=== PATIENT | male | born 1945 | race Caucasian/White ===

== ENCOUNTER 2022-01-19 12:06 | Observation (INO) ==
[2022-01-19 12:32] LABS: Basophils % 0.2 %; Eosinophils % 0.1 %; Hematocrit 46.3 % (37.5-50.1); Hemoglobin 15.8 g/dL (12.9-16.9); Immature Granulocytes % 0.6 % (0-4); Lymphocytes # 0.6 K/mcL (0.6-4.6); Lymphocytes % 3.7 %; Mean Corpuscular HGB Conc 34.1 g/dL (31.6-35.5); Mean Corpuscular Hemoglobin 31.3 pg (28.0-33.3); Mean Corpuscular Volume 91.9 fL (83.0-100.0); Mean Platelet Volume 9.5 fL (9.4-12.4); Monocytes # 2.1 K/mcL (0.0-1.3); Monocytes % 13.4 %; Neutrophils # 13.1 K/mcL (1.6-8.9); Platelet Count 244 K/mcL (140-400); Red Blood Count 5.04 M/mcL (4.19-5.50); Red Cell Distribution Width 12.6 % (11.5-14.5)
[2022-01-19 12:44] LABS: INR 1.2; Prothrombin Time 13.1 Seconds (9.4-12.1)
[2022-01-19 12:47] LABS: Activated Partial Thrombo Time 29.3 Seconds (26.0-36.0)
[2022-01-19 12:52] LABS: Alanine Aminotransferase 16 Units/L (7-52); Albumin/Globulin Ratio 1.4 (1.1-2.2); Alkaline Phosphatase 65 Units/L (34-104); Aspartate Amino Transferase 18 Units/L (13-39); BUN/Creatinine Ratio 17 (6-26); Bilirubin,Total 0.9 mg/dL (0.3-1.0); Blood Urea Nitrogen 16 mg/dL (8-23); Calcium 9.8 mg/dL (8.6-10.3); Carbon Dioxide 26 mEq/L (23-29); Chloride 100 mEq/L (98-107); Globulin 2.8 g/dL (2.4-3.5); Glucose 178 mg/dL (70-105); Osmolality,Calculated 282 (280-300); Potassium 3.8 mEq/L (3.5-5.1); Sodium 133 mEq/L (136-145); Total Protein 6.8 g/dL (6.4-8.9); eGFR For African Americans > 60 (> 60); eGFR For Non-African Americans > 60 (> 60)
[2022-01-19] MEDS ORDERED: Naloxone 0.4 MG/ML INJ IVP PRN (15:42)
[2022-01-19] MEDS ORDERED: Ondansetron 4 MG/2 ML VIAL IVP PRN (15:42)
[2022-01-19] MEDS ORDERED: Melatonin 3 MG TABLET PO PRN (15:42)
[2022-01-19] MEDS ORDERED: Mag Hydrox/Al Hydrox/Simeth 30 ML UDC PO PRN (15:42)
[2022-01-19] MEDS ORDERED: Dextrose 4 GM Chewable Tablets PO PRN ×2 (15:46)
[2022-01-19] MEDS ORDERED: D5% in Water 1,000 ML IVC PRN (15:46)
[2022-01-19] MEDS ORDERED: *HR* Dextrose 50 % in Water (Syg) 50 ML SYRINGE IVP PRN (15:46)
[2022-01-19] MEDS: Insulin LISPRO 300 UNITS/3 ML VIAL SUBQ SCH (16:40)
[2022-01-19 20:54] LABS: Estimated Average Glucose 137 mg/dl; Hemoglobin A1C 6.4 %
[2022-01-19] MEDS: 0.9 % Sodium Chloride 1,000 ML IVC SCH (22:27)
[2022-01-20 07:16] LABS: Basophils % 0.1 %; Hematocrit 42.2 % (37.5-50.1); Hemoglobin 14.1 g/dL (12.9-16.9); Immature Granulocytes % 0.9 % (0-4); Lymphocytes # 0.5 K/mcL (0.6-4.6); Lymphocytes % 3.3 %; Mean Corpuscular HGB Conc 33.4 g/dL (31.6-35.5); Mean Corpuscular Hemoglobin 31.3 pg (28.0-33.3); Mean Corpuscular Volume 93.8 fL (83.0-100.0); Mean Platelet Volume 10.1 fL (9.4-12.4); Monocytes # 2.4 K/mcL (0.0-1.3); Monocytes % 14.6 %; Neutrophils # 13.3 K/mcL (1.6-8.9); Platelet Count 186 K/mcL (140-400); Red Cell Distribution Width 12.6 % (11.5-14.5); Segmented Neutrophils % 81.1 %; White Blood Count 16.4 K/mcL (4.3-11.1)
[2022-01-20 07:39] LABS: BUN/Creatinine Ratio 18 (6-26); Blood Urea Nitrogen 14 mg/dL (8-23); Calcium 8.7 mg/dL (8.6-10.3); Carbon Dioxide 22 mEq/L (23-29); Chloride 103 mEq/L (98-107); Glucose 187 mg/dL (70-105); Osmolality,Calculated 281 (280-300); Potassium 3.3 mEq/L (3.5-5.1); Sodium 133 mEq/L (136-145); eGFR For African Americans > 60 (> 60); eGFR For Non-African Americans > 60 (> 60)
[2022-01-20 08:00] VITALS: RESP 16
[2022-01-20] MEDS ORDERED: *HR* Glimepiride 2 MG TABLET PO SCH (08:00)
[2022-01-20] MEDS ORDERED: (Ubidecarenone [Co Q-10] 10 MG Capsule) PO SCH (09:00)
[2022-01-20] MEDS ORDERED: (Glucosamine Sulfate Dipot Chlr [Glucosamine] 1,000 MG) PO SCH (09:00)
[2022-01-20] MEDS ORDERED: Aspirin Enteric Coated 81 MG Tablet PO SCH (09:00)
[2022-01-20] MEDS ORDERED: Cholecalciferol (D-3) 1,000 UNIT (25MCG) TABLET PO SCH (09:00)
[2022-01-20] MEDS ORDERED: amLODIPine 5 MG TABLET PO SCH (09:00)
[2022-01-20] MEDS ORDERED: INULIN 2 GM PO SCH (09:00)
[2022-01-20] MEDS ORDERED: [UNRECOGNIZED DRUG - OTHER] PO SCH (09:00)
[2022-01-20] MEDS ORDERED: FLAX PO SCH (09:00)
[2022-01-20] MEDS ORDERED: BORAGE PO SCH (09:00)
[2022-01-20] MEDS ORDERED: Vitamin B Complex/Vit C/Vit E 1 EACH TABLET PO SCH (09:00)
[2022-01-20] MEDS ORDERED: FISH OIL PO SCH (09:00)
[2022-01-20] MEDS: Insulin LISPRO 300 UNITS/3 ML VIAL SUBQ SCH ×3 (09:30→12:46)
[2022-01-20 09:38] LABS: Bilirubin,Urine Negative (Negative); Blood,Urine Large (Negative); Clarity,Urine Clear (Clear); Color,Urine Yellow (Yellow); Glucose,Urine (UA) Normal (Normal); Ketones,Urine Negative (Negative); Leukocyte Esterase,Urine Trace (Negative); Nitrite,Urine Negative (Negative); PH,Urine 6.5 pH Units (5.0-8.0); Protein,Urine Negative (Neg-Trace); Specific Gravity,Urine <= 1.005 (1.010-1.025); Urobilinogen,Urine Normal (Normal)
[2022-01-20 09:49] LABS: Bacteria,Urine Few per hpf (None-Few); WBC,Urine 0-3 per hpf (0-3)
[2022-01-20] MEDS ORDERED: Acetaminophen 325 MG TABLET PO PRN (11:10)
[2022-01-20 11:46] VITALS: BP 123/62; PULSE 82; TEMP 99.4; O2SAT 98
[2022-01-20] MEDS: 0.9 % Sodium Chloride 1,000 ML IVC SCH (12:06)
[2022-01-20] MEDS ORDERED: 0.9 % Sodium Chloride 1,000 ML IVC SCH ×2 (13:30→14:08)
[2022-01-20] MEDS ORDERED: Piperacillin/Tazobactam 3.375 GM in 0.9 % Sodium Chloride Mini Bag 100 ML IVPB SCH (13:56)
== END 2022-01-20 15:46 | disposition short-term general hospital (02) ==
LOC: INPPIK 12:06 → EMEROOPIK 12:06 → INPPIK 16:08
PROVIDERS: ADMIT Family Medicine; ATTEND Family Medicine

== ENCOUNTER 2022-01-30 11:51 | Inpatient (IN) ==
[2022-01-30] MEDS ORDERED: *HR* Dextrose 50 % in Water (Syg) 50 ML SYRINGE IVP PRN (15:34)
[2022-01-30] MEDS ORDERED: Dextrose Gel 15 GM/37.5 ML TUBE PO PRN ×2 (15:34)
[2022-01-30] MEDS ORDERED: D5% in Water 1,000 ML IVC PRN (15:34)
[2022-01-30] MEDS: Insulin LISPRO 300 UNITS/3 ML VIAL SUBQ SCH ×2 (17:44→20:43)
[2022-01-30] MEDS: Losartan/HCTZ 50-12.5 TABLET PO SCH (20:43)
[2022-01-31 06:41] LABS: Basophils # 0.1 K/mcL (0.0-0.2); Basophils % 0.8 %; Eosinophils # 0.5 K/mcL (0.0-0.6); Eosinophils % 3.6 %; Hematocrit 44.4 % (37.5-50.1); Hemoglobin 14.6 g/dL (12.9-16.9); Immature Granulocytes % 2.3 % (0-4); Lymphocytes # 1.7 K/mcL (0.6-4.6); Lymphocytes % 11.5 %; Mean Corpuscular HGB Conc 32.9 g/dL (31.6-35.5); Mean Corpuscular Hemoglobin 30.9 pg (28.0-33.3); Mean Corpuscular Volume 94.1 fL (83.0-100.0); Mean Platelet Volume 9.7 fL (9.4-12.4); Monocytes # 1.4 K/mcL (0.0-1.3); Monocytes % 9.5 %; Neutrophils # 10.8 K/mcL (1.6-8.9); Platelet Count 416 K/mcL (140-400); Red Blood Count 4.72 M/mcL (4.19-5.50); Segmented Neutrophils % 72.3 %; White Blood Count 14.9 K/mcL (4.3-11.1)
[2022-01-31 06:59] LABS: BUN/Creatinine Ratio 25 (6-26); Blood Urea Nitrogen 21 mg/dL (8-23); Calcium 9.5 mg/dL (8.6-10.3); Carbon Dioxide 26 mEq/L (23-29); Chloride 104 mEq/L (98-107); Glucose 178 mg/dL (70-105); Osmolality,Calculated 289 (280-300); Potassium 3.9 mEq/L (3.5-5.1); Sodium 136 mEq/L (136-145); eGFR For African Americans > 60 (> 60); eGFR For Non-African Americans > 60 (> 60)
[2022-01-31] MEDS: Cholecalciferol (D-3) 1,000 UNIT (25MCG) TABLET PO SCH (08:45)
[2022-01-31] MEDS: *HR* Glimepiride 2 MG TABLET PO SCH (08:46)
[2022-01-31] MEDS: amLODIPine 5 MG TABLET PO SCH (08:46)
[2022-01-31] MEDS: [UNRECOGNIZED DRUG - OTHER] PO SCH (08:48)
[2022-01-31] MEDS: FLAX PO SCH (08:48)
[2022-01-31] MEDS: Aspirin Enteric Coated 81 MG Tablet PO SCH (08:48)
[2022-01-31] MEDS: FISH OIL PO SCH (08:48)
[2022-01-31] MEDS: Vitamin B Complex/Vit C/Vit E 1 EACH TABLET PO SCH (08:48)
[2022-01-31] MEDS: BORAGE PO SCH (08:48)
[2022-01-31] MEDS: GLUCOSAMINE SULFATE DIPOT CHLR 1000 MG PO SCH (08:49)
[2022-01-31] MEDS: INULIN 2 GM PO SCH (08:49)
[2022-01-31] MEDS: (Ubidecarenone [Co Q-10] 10 MG Capsule) PO SCH (08:49)
[2022-01-31] MEDS: Insulin LISPRO 300 UNITS/3 ML VIAL SUBQ SCH ×4 (08:49→21:12)
[2022-01-31] MEDS: *HR* Heparin 5,000 UNIT/ML VIAL SQ SCH (18:10)
[2022-01-31] MEDS: Losartan/HCTZ 50-12.5 TABLET PO SCH (21:12)
[2022-02-01] MEDS: *HR* Heparin 5,000 UNIT/ML VIAL SQ SCH ×2 (06:42→18:12)
[2022-02-01 09:20] LABS: Basophils # 0.1 K/mcL (0.0-0.2); Eosinophils # 0.6 K/mcL (0.0-0.6); Eosinophils % 4.9 %; Hematocrit 45.8 % (37.5-50.1); Hemoglobin 14.9 g/dL (12.9-16.9); Immature Granulocytes % 1.8 % (0-4); Lymphocytes # 1.9 K/mcL (0.6-4.6); Lymphocytes % 15.5 %; Mean Corpuscular HGB Conc 32.5 g/dL (31.6-35.5); Mean Corpuscular Hemoglobin 30.9 pg (28.0-33.3); Mean Platelet Volume 9.5 fL (9.4-12.4); Monocytes # 1.2 K/mcL (0.0-1.3); Monocytes % 9.5 %; Platelet Count 449 K/mcL (140-400); Red Blood Count 4.82 M/mcL (4.19-5.50); Red Cell Distribution Width 12.9 % (11.5-14.5); Segmented Neutrophils % 67.3 %; White Blood Count 12.4 K/mcL (4.3-11.1)
[2022-02-01 09:37] LABS: Neutrophils # 8.4 K/mcL (1.6-8.9)
[2022-02-01 09:47] LABS: BUN/Creatinine Ratio 21 (6-26); Blood Urea Nitrogen 18 mg/dL (8-23); Calcium 9.6 mg/dL (8.6-10.3); Carbon Dioxide 25 mEq/L (23-29); Chloride 102 mEq/L (98-107); Glucose 247 mg/dL (70-105); Osmolality,Calculated 288 (280-300); Potassium 4.5 mEq/L (3.5-5.1); Sodium 134 mEq/L (136-145); eGFR For African Americans > 60 (> 60); eGFR For Non-African Americans > 60 (> 60)
[2022-02-01] MEDS: amLODIPine 5 MG TABLET PO SCH (10:06)
[2022-02-01] MEDS: *HR* Glimepiride 2 MG TABLET PO SCH (10:06)
[2022-02-01] MEDS: Aspirin Enteric Coated 81 MG Tablet PO SCH (10:06)
[2022-02-01] MEDS: [UNRECOGNIZED DRUG - OTHER] PO SCH (10:07)
[2022-02-01] MEDS: (Ubidecarenone [Co Q-10] 10 MG Capsule) PO SCH (10:07)
[2022-02-01] MEDS: FISH OIL PO SCH (10:07)
[2022-02-01] MEDS: Cholecalciferol (D-3) 1,000 UNIT (25MCG) TABLET PO SCH (10:07)
[2022-02-01] MEDS: GLUCOSAMINE SULFATE DIPOT CHLR 1000 MG PO SCH (10:07)
[2022-02-01] MEDS: BORAGE PO SCH (10:07)
[2022-02-01] MEDS: FLAX PO SCH (10:07)
[2022-02-01] MEDS: INULIN 2 GM PO SCH (10:07)
[2022-02-01] MEDS: Vitamin B Complex/Vit C/Vit E 1 EACH TABLET PO SCH (10:07)
[2022-02-01] MEDS: Insulin LISPRO 300 UNITS/3 ML VIAL SUBQ SCH ×4 (10:08→20:34)
[2022-02-01] MEDS: Losartan/HCTZ 50-12.5 TABLET PO SCH (20:34)
[2022-02-02] MEDS: *HR* Heparin 5,000 UNIT/ML VIAL SQ SCH ×2 (06:13→17:30)
[2022-02-02] MEDS: Insulin LISPRO 300 UNITS/3 ML VIAL SUBQ SCH ×4 (09:50→20:03)
[2022-02-02] MEDS: BORAGE PO SCH (09:51)
[2022-02-02] MEDS: [UNRECOGNIZED DRUG - OTHER] PO SCH (09:51)
[2022-02-02] MEDS: (Ubidecarenone [Co Q-10] 10 MG Capsule) PO SCH (09:51)
[2022-02-02] MEDS: INULIN 2 GM PO SCH (09:51)
[2022-02-02] MEDS: FLAX PO SCH (09:51)
[2022-02-02] MEDS: FISH OIL PO SCH (09:51)
[2022-02-02] MEDS: GLUCOSAMINE SULFATE DIPOT CHLR 1000 MG PO SCH (09:51)
[2022-02-02] MEDS: Vitamin B Complex/Vit C/Vit E 1 EACH TABLET PO SCH (12:18)
[2022-02-02] MEDS: Cholecalciferol (D-3) 1,000 UNIT (25MCG) TABLET PO SCH (12:19)
[2022-02-02] MEDS: Aspirin Enteric Coated 81 MG Tablet PO SCH (12:19)
[2022-02-02] MEDS: amLODIPine 5 MG TABLET PO SCH (12:19)
[2022-02-02] MEDS: *HR* Glimepiride 2 MG TABLET PO SCH (12:20)
[2022-02-02] MEDS: Losartan/HCTZ 50-12.5 TABLET PO SCH (20:15)
[2022-02-03] MEDS: *HR* Heparin 5,000 UNIT/ML VIAL SQ SCH ×2 (04:59→18:06)
[2022-02-03] MEDS: Aspirin Enteric Coated 81 MG Tablet PO SCH (09:04)
[2022-02-03] MEDS: Insulin LISPRO 300 UNITS/3 ML VIAL SUBQ SCH ×4 (09:05→19:37)
[2022-02-03] MEDS: *HR* Glimepiride 2 MG TABLET PO SCH (09:05)
[2022-02-03] MEDS: amLODIPine 5 MG TABLET PO SCH (09:05)
[2022-02-03] MEDS: Cholecalciferol (D-3) 1,000 UNIT (25MCG) TABLET PO SCH (09:05)
[2022-02-03] MEDS: Vitamin B Complex/Vit C/Vit E 1 EACH TABLET PO SCH (09:05)
[2022-02-03] MEDS: GLUCOSAMINE SULFATE DIPOT CHLR 1000 MG PO SCH (09:06)
[2022-02-03] MEDS: BORAGE PO SCH (09:06)
[2022-02-03] MEDS: (Ubidecarenone [Co Q-10] 10 MG Capsule) PO SCH (09:06)
[2022-02-03] MEDS: FISH OIL PO SCH (09:06)
[2022-02-03] MEDS: INULIN 2 GM PO SCH (09:06)
[2022-02-03] MEDS: FLAX PO SCH (09:06)
[2022-02-03] MEDS: [UNRECOGNIZED DRUG - OTHER] PO SCH (09:06)
[2022-02-03] MEDS: Losartan/HCTZ 50-12.5 TABLET PO SCH (19:37)
[2022-02-04] MEDS: *HR* Heparin 5,000 UNIT/ML VIAL SQ SCH ×2 (05:53→17:02)
[2022-02-04] MEDS: Insulin LISPRO 300 UNITS/3 ML VIAL SUBQ SCH ×4 (07:58→20:37)
[2022-02-04] MEDS: Aspirin Enteric Coated 81 MG Tablet PO SCH (09:01)
[2022-02-04] MEDS: *HR* Glimepiride 2 MG TABLET PO SCH (09:01)
[2022-02-04] MEDS: Cholecalciferol (D-3) 1,000 UNIT (25MCG) TABLET PO SCH (09:01)
[2022-02-04] MEDS: Vitamin B Complex/Vit C/Vit E 1 EACH TABLET PO SCH (09:03)
[2022-02-04] MEDS: amLODIPine 5 MG TABLET PO SCH (09:03)
[2022-02-04] MEDS: FISH OIL PO SCH (09:11)
[2022-02-04] MEDS: (Ubidecarenone [Co Q-10] 10 MG Capsule) PO SCH (09:11)
[2022-02-04] MEDS: INULIN 2 GM PO SCH (09:11)
[2022-02-04] MEDS: BORAGE PO SCH (09:11)
[2022-02-04] MEDS: [UNRECOGNIZED DRUG - OTHER] PO SCH (09:11)
[2022-02-04] MEDS: GLUCOSAMINE SULFATE DIPOT CHLR 1000 MG PO SCH (09:11)
[2022-02-04] MEDS: FLAX PO SCH (09:11)
[2022-02-04] MEDS: Losartan/HCTZ 50-12.5 TABLET PO SCH (20:37)
[2022-02-05] MEDS: *HR* Heparin 5,000 UNIT/ML VIAL SQ SCH ×2 (06:31→17:46)
[2022-02-05] MEDS: *HR* Glimepiride 2 MG TABLET PO SCH (08:32)
[2022-02-05] MEDS: Aspirin Enteric Coated 81 MG Tablet PO SCH (08:32)
[2022-02-05] MEDS: Vitamin B Complex/Vit C/Vit E 1 EACH TABLET PO SCH (08:34)
[2022-02-05] MEDS: (Ubidecarenone [Co Q-10] 10 MG Capsule) PO SCH (08:34)
[2022-02-05] MEDS: amLODIPine 5 MG TABLET PO SCH (08:34)
[2022-02-05] MEDS: INULIN 2 GM PO SCH (08:34)
[2022-02-05] MEDS: Cholecalciferol (D-3) 1,000 UNIT (25MCG) TABLET PO SCH (08:34)
[2022-02-05] MEDS: FLAX PO SCH (08:35)
[2022-02-05] MEDS: [UNRECOGNIZED DRUG - OTHER] PO SCH (08:35)
[2022-02-05] MEDS: GLUCOSAMINE SULFATE DIPOT CHLR 1000 MG PO SCH (08:35)
[2022-02-05] MEDS: Nystatin POWDER 30 GM BOTTLE TP SCH ×2 (08:35→20:03)
[2022-02-05] MEDS: BORAGE PO SCH (08:35)
[2022-02-05] MEDS: FISH OIL PO SCH (08:35)
[2022-02-05] MEDS: Insulin LISPRO 300 UNITS/3 ML VIAL SUBQ SCH ×4 (08:36→20:03)
[2022-02-05] MEDS: Losartan/HCTZ 50-12.5 TABLET PO SCH (20:03)
[2022-02-06] MEDS: *HR* Heparin 5,000 UNIT/ML VIAL SQ SCH ×2 (06:00→18:02)
[2022-02-06] MEDS: Insulin LISPRO 300 UNITS/3 ML VIAL SUBQ SCH ×4 (08:37→20:20)
[2022-02-06] MEDS: amLODIPine 5 MG TABLET PO SCH (08:38)
[2022-02-06] MEDS: *HR* Glimepiride 2 MG TABLET PO SCH (08:38)
[2022-02-06] MEDS: Cholecalciferol (D-3) 1,000 UNIT (25MCG) TABLET PO SCH (08:38)
[2022-02-06] MEDS: Vitamin B Complex/Vit C/Vit E 1 EACH TABLET PO SCH (08:38)
[2022-02-06] MEDS: Aspirin Enteric Coated 81 MG Tablet PO SCH (08:39)
[2022-02-06] MEDS: Nystatin POWDER 30 GM BOTTLE TP SCH ×2 (08:45→21:23)
[2022-02-06] MEDS: GLUCOSAMINE SULFATE DIPOT CHLR 1000 MG PO SCH (08:49)
[2022-02-06] MEDS: [UNRECOGNIZED DRUG - OTHER] PO SCH (08:49)
[2022-02-06] MEDS: (Ubidecarenone [Co Q-10] 10 MG Capsule) PO SCH (08:49)
[2022-02-06] MEDS: FLAX PO SCH (08:49)
[2022-02-06] MEDS: INULIN 2 GM PO SCH (08:49)
[2022-02-06] MEDS: FISH OIL PO SCH (08:49)
[2022-02-06] MEDS: BORAGE PO SCH (08:49)
[2022-02-06] MEDS: Losartan/HCTZ 50-12.5 TABLET PO SCH (20:19)
[2022-02-07] MEDS: *HR* Heparin 5,000 UNIT/ML VIAL SQ SCH ×2 (05:47→16:31)
[2022-02-07] MEDS: BORAGE PO SCH (07:12)
[2022-02-07] MEDS: GLUCOSAMINE SULFATE DIPOT CHLR 1000 MG PO SCH (07:12)
[2022-02-07] MEDS: [UNRECOGNIZED DRUG - OTHER] PO SCH (07:12)
[2022-02-07] MEDS: (Ubidecarenone [Co Q-10] 10 MG Capsule) PO SCH (07:12)
[2022-02-07] MEDS: INULIN 2 GM PO SCH (07:12)
[2022-02-07] MEDS: FLAX PO SCH (07:12)
[2022-02-07] MEDS: FISH OIL PO SCH (07:12)
[2022-02-07] MEDS: Insulin LISPRO 300 UNITS/3 ML VIAL SUBQ SCH ×4 (07:47→19:22)
[2022-02-07] MEDS: *HR* Glimepiride 2 MG TABLET PO SCH (08:52)
[2022-02-07] MEDS: Aspirin Enteric Coated 81 MG Tablet PO SCH (08:53)
[2022-02-07] MEDS: Cholecalciferol (D-3) 1,000 UNIT (25MCG) TABLET PO SCH (08:53)
[2022-02-07] MEDS: Nystatin POWDER 30 GM BOTTLE TP SCH ×2 (08:53→21:48)
[2022-02-07] MEDS: Vitamin B Complex/Vit C/Vit E 1 EACH TABLET PO SCH (08:53)
[2022-02-07] MEDS: amLODIPine 5 MG TABLET PO SCH (08:53)
[2022-02-07] MEDS: Losartan/HCTZ 50-12.5 TABLET PO SCH (19:22)
[2022-02-08] MEDS: *HR* Heparin 5,000 UNIT/ML VIAL SQ SCH ×2 (05:46→19:39)
[2022-02-08] MEDS: Insulin LISPRO 300 UNITS/3 ML VIAL SUBQ SCH ×4 (08:54→19:39)
[2022-02-08] MEDS: FLAX PO SCH (08:55)
[2022-02-08] MEDS: FISH OIL PO SCH (08:55)
[2022-02-08] MEDS: Nystatin POWDER 30 GM BOTTLE TP SCH ×2 (08:55→19:44)
[2022-02-08] MEDS: amLODIPine 5 MG TABLET PO SCH (08:55)
[2022-02-08] MEDS: [UNRECOGNIZED DRUG - OTHER] PO SCH (08:55)
[2022-02-08] MEDS: Cholecalciferol (D-3) 1,000 UNIT (25MCG) TABLET PO SCH (08:55)
[2022-02-08] MEDS: *HR* Glimepiride 2 MG TABLET PO SCH (08:55)
[2022-02-08] MEDS: BORAGE PO SCH (08:55)
[2022-02-08] MEDS: Aspirin Enteric Coated 81 MG Tablet PO SCH (08:55)
[2022-02-08] MEDS: Vitamin B Complex/Vit C/Vit E 1 EACH TABLET PO SCH (08:55)
[2022-02-08] MEDS: GLUCOSAMINE SULFATE DIPOT CHLR 1000 MG PO SCH (08:56)
[2022-02-08] MEDS: (Ubidecarenone [Co Q-10] 10 MG Capsule) PO SCH (08:56)
[2022-02-08] MEDS: INULIN 2 GM PO SCH (08:56)
[2022-02-08] MEDS: polyethylene glycoL 3350 17 GM POWD.PACK PO SCH (13:37)
[2022-02-08] MEDS: Losartan/HCTZ 50-12.5 TABLET PO SCH (19:39)
[2022-02-09] MEDS: *HR* Heparin 5,000 UNIT/ML VIAL SQ SCH ×2 (05:17→17:48)
[2022-02-09] MEDS: Insulin LISPRO 300 UNITS/3 ML VIAL SUBQ SCH ×4 (08:18→20:58)
[2022-02-09] MEDS: Aspirin Enteric Coated 81 MG Tablet PO SCH (08:19)
[2022-02-09] MEDS: *HR* Glimepiride 2 MG TABLET PO SCH (08:19)
[2022-02-09] MEDS: Cholecalciferol (D-3) 1,000 UNIT (25MCG) TABLET PO SCH (08:19)
[2022-02-09] MEDS: Nystatin POWDER 30 GM BOTTLE TP SCH ×2 (08:20→20:58)
[2022-02-09] MEDS: polyethylene glycoL 3350 17 GM POWD.PACK PO SCH (08:20)
[2022-02-09] MEDS: GLUCOSAMINE SULFATE DIPOT CHLR 1000 MG PO SCH (08:20)
[2022-02-09] MEDS: amLODIPine 5 MG TABLET PO SCH (08:20)
[2022-02-09] MEDS: (Ubidecarenone [Co Q-10] 10 MG Capsule) PO SCH (08:20)
[2022-02-09] MEDS: [UNRECOGNIZED DRUG - OTHER] PO SCH (08:20)
[2022-02-09] MEDS: INULIN 2 GM PO SCH (08:20)
[2022-02-09] MEDS: FISH OIL PO SCH (08:20)
[2022-02-09] MEDS: BORAGE PO SCH (08:20)
[2022-02-09] MEDS: FLAX PO SCH (08:20)
[2022-02-09] MEDS: Vitamin B Complex/Vit C/Vit E 1 EACH TABLET PO SCH (08:22)
[2022-02-09] MEDS: Losartan/HCTZ 50-12.5 TABLET PO SCH (20:58)
[2022-02-09 22:56] VITALS: PULSE 68; TEMP 98.2
[2022-02-10] MEDS: *HR* Heparin 5,000 UNIT/ML VIAL SQ SCH (05:06)
[2022-02-10 07:12] VITALS: BP 134/76; RESP 17; O2SAT 95
[2022-02-10] MEDS: Insulin LISPRO 300 UNITS/3 ML VIAL SUBQ SCH ×2 (07:22→11:23)
[2022-02-10] MEDS: Cholecalciferol (D-3) 1,000 UNIT (25MCG) TABLET PO SCH (08:17)
[2022-02-10] MEDS: Nystatin POWDER 30 GM BOTTLE TP SCH (08:18)
[2022-02-10] MEDS: Aspirin Enteric Coated 81 MG Tablet PO SCH (08:18)
[2022-02-10] MEDS: FISH OIL PO SCH (08:18)
[2022-02-10] MEDS: polyethylene glycoL 3350 17 GM POWD.PACK PO SCH (08:18)
[2022-02-10] MEDS: amLODIPine 5 MG TABLET PO SCH (08:18)
[2022-02-10] MEDS: BORAGE PO SCH (08:18)
[2022-02-10] MEDS: Vitamin B Complex/Vit C/Vit E 1 EACH TABLET PO SCH (08:18)
[2022-02-10] MEDS: [UNRECOGNIZED DRUG - OTHER] PO SCH (08:18)
[2022-02-10] MEDS: FLAX PO SCH (08:18)
[2022-02-10] MEDS: *HR* Glimepiride 2 MG TABLET PO SCH (08:18)
[2022-02-10] MEDS: GLUCOSAMINE SULFATE DIPOT CHLR 1000 MG PO SCH (08:19)
[2022-02-10] MEDS: INULIN 2 GM PO SCH (08:19)
[2022-02-10] MEDS: (Ubidecarenone [Co Q-10] 10 MG Capsule) PO SCH (08:19)
== END 2022-02-10 12:35 | disposition home health service (06) | DRG 690 ==
LOC: INPPIK 17:35 → SUATTDRO 17:35 → INPPIK 02-01 11:00
PROVIDERS: ADMIT Family Medicine; ATTEND Family Medicine